=== PATIENT | female | born 1945 | race Caucasian/White ===

== ENCOUNTER 2017-01-19 18:57 | Emergency (ER) | payer MEDICARE ==
[~2017-01-19] VITALS: Ht 154.9 cm; Wt 59.0 kg
[~2017-01-19 18:57] MED LIST: ASCO-296 PO; ASPI-1114 PO; AZIT250T PO; CALC-652 PO; ESOM40CA24 PO; FISH OIL DR 1,1 EAC1 PO; GARL1CAP12 PO; LISI-126 PO; LOVA40TA70 PO; MULT-806 PO; SUCR1TAB20 PO; SUMA100T7 PO; [UNRECOGNIZED DRUG - CODE] PO
--- OUTSIDE RECORDS SUMMARY | 2017-01-19 19:02 | XMS REPORT ---
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 Role Phone Chan Iniguez Unavailable [phone] PROBLEMS Type Condition ICD9-CM Code OHG76-OG Code Onset Dates Condition Status SNOMED Code Problem Chronic migraine without aura, without mention of intractable migraine without mention of status migrainosus 346.70 Active 624706828341201 Problem Insomnia, unspecified 780.52 Active 166484447 Problem Hypertension 997.91 Active 13762086 Problem Unspecified essential hypertension 401.9 Active 62431209 Problem Reflux esophagitis 530.11 Active 249351494 Problem Gastro-esophageal reflux disease without esophagitis K21.9 Active 565074572 Problem Essential (primary) hypertension I10 Active 62228881 Problem Generalized anxiety disorder 300.02 Active 39231972 Problem Pain in joint, lower leg 719.46 Active 952833011 Problem Hyperlipidemia, unspecified E78.5 Active 93564721 Problem Unspecified genital herpes 054.10 Active 28162899 ALLERGIES Unknown Allergies SOCIAL HISTORY No smoking Hx information available PLAN OF CARE VITAL SIGNS MEDICATIONS Medication Instructions Dosage Frequency Start Date End Date Duration Status Nexium 40MG Orally Once a day take one capsule by mouth every day 24h 90 days Active RESULTS No Results PROCEDURES No Known procedures IMMUNIZATIONS No Known Immunizations
--- OUTSIDE RECORDS SUMMARY | 2017-01-19 19:03 | XMS REPORT | Continuity of Care Document ---
Author Author [facility] Organization [facility] Address Unknown Phone Unavailable Support Name Relationship Address Phone JASON CROCKETT DO Caregiver [address] [place] [address] Unavailable ORACIO VALADEZ MD Caregiver [address] [place] [address] [place] [address] Unavailable VERÓNICAAPOLINAR GUEVARANT Next Of Kin Unknown [phone] C Insurance Providers Guarantor JakFermin A Address [address] [place] [address] Email [email or web address] Payer Medicare Policy Number [id number] Subscriber's Name Fermin Mo Relationship 18 Self Effective Date 11 Advance Directives Directive Response Recorded Date/Time Advanced Directives Type None 09/19/16 1:18pm Chief Complaint and Reason for Visit Chief Complaint Cough,Fever,Flu,URI Reason for Visit Gastric reflux Bronchitis Problems Active Problems Medical Problem Onset Date Status Bronchitis Unknown Acute Gastric reflux Unknown Acute Past Problems Medical Problem Onset Date Gastritis Unknown Medications Current Home Medications Medication Dose Units Route Directions Days Qty Instructions Start Date Ascorbic Acid (Vitamin C) 500 Mg Tablet 500 Mg Oral Daily Aspirin/Sod Bicarb/Citric Acid (Sushma-[place] Original Tab Eff) 1 Each Tablet.eff 2 Tab Oral As Needed 03/22/16 Azithromycin (Zithromax) 250 Mg Tablet 1 Tab Oral Daily 4 Days 4 Tablet TAKE ONE TABLET DAILY FOR FOUR MORE DAYS; START ON Saturday09/19/16 Calcium Carbonate (Calcium) 1 Tab Tablet 1 Tab Oral Daily Echinacea 500 Mg Capsule 1,000 Mg Oral Daily 07/01/13 Esomeprazole Mag Trihydrate (Nexium) 40 Mg Capsule.dr 40 Mg Oral Daily 07/22/12 Garlic 1 Cap Capsule 1 Cap Oral Daily 07/01/13 Lisinopril 20 Mg Tablet 20 Mg Oral Daily 07/22/12 Lovastatin 40 Mg Tablet 40 Mg Oral Bedtime 07/22/12 Multivitamins (Multivitamin) 1 Tab Tablet 1 Tab Oral Daily [place]-3 Fatty Acids/Fish Oil ([place] [address] Dr 1,000 Mg Softgel) 1 Each Capsule. 1 Cap Oral Daily 03/22/16 Sucralfate (Carafate) 1 Gm Tablet 1 G Oral Twice A Day 03/22/16 Sumatriptan Succinate (Imitrex) 100 Mg Tablet 100 Mg Oral As Needed 07/01/13 Past Home Medications Medication Directions Ordered Status [place]-3/Dha/Epa/Fish Oil (Fish Oil 1,400 Mg Softgel) 1 Each Capsule., 1 Each Oral Daily 07/01/13 Discontinued Quetiapine Fumarate (Seroquel) 25 Mg Tablet, 25 Mg Oral Bedtime 07/22/12 Discontinued Social History Social History Problem Response Recorded Date/Time Onset Date Status Chewing Tobacco Status No 07/15/2013 11:56am Not Applicable Not Applicable Hx Substance Use No 09/19/2016 3:09pm Not Applicable Not Applicable Hx Alcohol Use Y 1X MO AT THE MOST 09/19/2016 3:09pm Not Applicable Not Applicable Has the pt used tobacco in the last 12 months No 04/14/2015 9:53am Not Applicable Not Applicable Tobacco Usage none 03/23/2016 10:28am Not Applicable Not Applicable Query Response Start Date Stop Date Smoking Status Never smoker Hospital Discharge Instructions No hospital discharge instructions. Plan of Care Discharge Date 09/19/16 3:24pm Disposition 01 DISCHARGED HOME, SELF-CARE Condition at Discharge Stable Instructions/Education Provided DI for Gastroesophageal Reflux Disease (GERD) DI for Acute Bronchitis Prescriptions See Medication Section Referrals JASON CROCKETT DO Order Date: 1 Week Address: [address] [place] [address] [phone] Note: Additional Instructions/Education YOUR ANTIBIOTICS WERE STARTED TODAY; YOU WONT NEED TO TAKE YOUR NEXT DOSE UNTIL TOMORROW. STEROID INJECTION GIVEN WILL TAKE THE PLACE OF ORAL STEROIDS. USE GI COCKTAIL DIRECTED AND NEEDED FOR ABDOMINAL PAIN. TAKE YOUR ZITHROMAX WITH FOOD TO PREVENT STOMACH UPSET. FOLLOW UP WITH DR CROCKETT IF NOT IMPROVING OR RETURN TO THE ER WITH WORSENING SYMPTOMS. Functional Status No functional status results. Allergies, Adverse Reactions, Alerts No known allergies. Immunizations Query Response on File Recorded Date/Time Hx Influenza Vaccination No 04/14/15 9:53am Hx Pneumococcal Vaccination No 04/14/15 9:53am Hx Influenza Vaccination No 04/14/15 9:53am Vital Signs Acute Vital Signs Vital Response Date/Time Temperature (Fahrenheit) 98.1 deg F (96.8 - 99.1) 09/19/2016 3:24pm Temperature (Calculated Celsius) 36.75823 degrees C (36.0 - 37.3) 09/19/2016 3:24pm Pulse Rate (adult) 89 bpm (60 - 100) 09/19/2016 3:24pm Respiratory Rate 16 breaths/min (10 - 20) 09/19/2016 3:24pm O2 Sat by Pulse Oximetry 97 % (90 - 100) 09/19/2016 3:24pm Blood Pressure 128/62 mm Hg 09/19/2016 3:24pm Height (Feet) 5 feet 09/19/2016 1:18pm Height (Inches) 1.00 inches 09/19/2016 1:18pm Weight (Kilograms) 61.900 kg 09/19/2016 1:18pm Body Mass Index (BMI) 25.0 09/19/2016 1:18pm Results No known relevant diagnostic tests, laboratory data and/or discharge summary. Procedures No known history of procedures. Encounters Encounter Location Arrival/Admit Date Discharge/Depart Date Attending Provider Departed Emergency Room [facility] 09/19/16 1:14pm 09/19/16 3: 24pm ORACIO VALADEZ MD Recent Diagnosis
[2017-01-19 19:27] VITALS: Ht 154.9 cm; Wt 59.0 kg
--- NOTE | 2017-01-19 20:40 | NUR ---
STATUS PT AT REGISTRATION DESK WANTING TO GO HOME STATES SHE IS NOT AN EMERGENCY AND CAN COME BACK TOMORROW ASKING WHAT TIME SHE COULD COME THAT WILL BE CONVENIENT EXPLAINED TO PT THAT IS UNKNOWN BECAUSE THIS IS THE EMERGENCY ROOM AND WE DO NOT TAKE SCHEDULED TIMES. ALSO EXPLAINED THAT TOMORROW MAY BE JUST BUSY AND SHE WOULD BE WAITING THEN TOO. PT STATES SHE WOULD JUST RATHER GO HOME. DID SAY SHE WAS TO TIRED TO GO TO THE STORE AND WANTED TO KNOW IF SHE CAN HAVE SOME SALTINE CRACKERS. PT WAS GIVEN SOME CRACKERS AND SAYS SHE WILL TRY THAT AND COME BACK TOMORROW IF SHE NEEDS TO
[2017-01-19 20:42] VITALS: BP 177/79; PULSE 78; RESP 18; TEMP 98.6; O2SAT 98
--- NOTE | 2017-01-19 20:42 | NUR ---
LWBS PT SIGNED LWBS FORM
[2017-01-20] MEDS ORDERED: ONDA4TAB10 PO (10:28)
== END 2017-01-19 20:42 | disposition left against medical advice (07) ==
LOC: ED 18:57
DX: Z53.21 Procedure and treatment not carried out due to patient leaving prior to being seen by health care provider (principal)

== ENCOUNTER 2017-01-20 08:37 | Emergency (ER) | payer MEDICARE ==
[~2017-01-20] VITALS: Ht 154.9 cm; Wt 59.2 kg
[2017-01-20 08:40] VITALS: Ht 154.9 cm; Wt 59.2 kg
--- OUTSIDE RECORDS SUMMARY | 2017-01-20 08:41 | XMS REPORT | Continuity of Care Document ---
Author Author [facility] Organization [facility] Address Unknown Phone Unavailable Support Name Relationship Address Phone JANUARY, VANESSA Dean DO Caregiver [address] [place] [address] Unavailable JASON CROCKETT DO Caregiver [address] [place] [address] Unavailable APOLINAR SANCHESNT Next Of Kin Unknown [phone] C Insurance Providers Guarantor ChelyFermin A Address [address] [place] [address] Email [email or web address] Payer Medicare Policy Number [id number] Subscriber's Name Fermin Benedict Relationship 18 Self Effective Date 11 Chief Complaint and Reason for Visit Chief Complaint Nausea,Vomiting,Diarrhea Reason for Visit Patient left without being seen Problems Active Problems Medical Problem Onset Date Status Bronchitis Unknown Acute Gastric reflux Unknown Acute Past Problems Medical Problem Onset Date Gastritis Unknown Patient left without being seen Unknown Medications Current Home Medications Medication Dose Units Route Directions Days Qty Instructions Start Date Ascorbic Acid (Vitamin C) 500 Mg Tablet 500 Mg Oral Daily Aspirin/Sod Bicarb/Citric Acid (Sushma-[place] Original Tab Eff) 1 Each Tablet.eff 2 [...] 1 Tab Tablet 1 Tab Oral Daily [place]-3 Fatty Acids/Fish Oil (Fish Oil Dr 1,000 Mg Softgel) 1 Each Capsule.dr 1 Cap Oral Daily 03/22/16 Sucralfate (Carafate) 1 Gm Tablet 1 G Oral Twice A Day 03/22/16 Sumatriptan Succinate (Imitrex) 100 Mg Tablet 100 Mg Oral As Needed 07/01/13 Past Home Medications Medication Directions Ordered Status [place]-3/Dha/Epa/Fish Oil (Fish Oil 1,400 Mg Softgel) 1 Each Capsule.dr, 1 Each Oral Daily 07/01/13 Discontinued Quetiapine [...] none 03/23/2016 10:28am Not Applicable Not Applicable Hospital Discharge Instructions No hospital discharge instructions. Plan of Care Discharge Date 01/19/17 8:42pm Disposition 07 LEFT W/O BEING SEEN Condition at Discharge Stable Prescriptions See Medication Section Referrals JASON CROCKETT DO Address: [address] [place] [phone] Functional Status No functional status results. Allergies, Adverse Reactions, Alerts No known allergies. Immunizations Query Response on File Recorded Date/Time Hx Influenza Vaccination No 04/14/15 9:53am Hx Pneumococcal Vaccination No 04/14/15 9:53am Hx Influenza Vaccination No 04/14/15 9:53am Vital Signs Acute Vital Signs Vital Response Date/Time Temperature (Fahrenheit) 98.6 deg F (96.8 - 99.1) 01/19/2017 8:42pm Temperature (Calculated Celsius) 37.67677 degrees C (36.0 - 37.3) 01/19/2017 8:42pm Pulse Rate (adult) 78 bpm (60 - 100) 01/19/2017 8:42pm Respiratory Rate 18 breaths/min (10 - 20) 01/19/2017 8:42pm O2 Sat by Pulse Oximetry 98 % (90 - 100) 01/19/2017 8:42pm Blood Pressure 177/79 mm Hg 01/19/2017 8:42pm Height (Feet) 5 feet 01/19/2017 7:27pm Height (Inches) 1.00 inches 01/19/2017 7:27pm Weight (Kilograms) 59.000 kg 01/19/2017 7:27pm Body Mass Index (BMI) 24.0 01/19/2017 7:27pm Results No known relevant diagnostic tests, laboratory data and/or discharge summary. Procedures No known history of procedures. Encounters Encounter Location Arrival/Admit Date Discharge/Depart Date Attending Provider Departed Emergency Room [facility] 01/19/17 6:57pm 01/19/17 8: 42pm VANESSA RIOJAS DO Recent Diagnosis
[2017-01-20] MEDS ORDERED: G.I. COCKTAIL 30ml PO ONE (09:00)
[2017-01-20] MEDS ORDERED: ONDANSETRON ODT 4 MG TAB PO ONE (09:00)
[2017-01-20] MEDS ORDERED: KETOROLAC 30mg/ml INJECTION IV ONE (09:30)
--- NOTE | 2017-01-20 09:30 | NUR ---
STATUS PT. STATES THE GI COCKTAIL HELPED HER ABD. DISCOMFORT BUT MADE HER SALIVATE AND FEEL LIKE SHE COULD VOMIT.
--- NOTE | 2017-01-20 09:34 | NUR ---
DR YANG MAY IN TO SEE PT.
[2017-01-20 10:05] LABS: BASOPHILS % (AUTO) 0.3 % (0-2); EOSINOPHILS % (AUTO) 0.4 % (0-4); HCT - HEMATOCRIT 41.3 % (36-46); HGB - HEMOGLOBIN 13.8 GM/DL (12-16); IMMATURE GRANULOCYTE # (AUTO) 0.01 T/MM3 (0.00-0.03); IMMATURE GRANULOCYTE % (AUTO) 0.1 % (0.0-0.5); LYMPHOCYTES # (AUTO) 1.8 T/MM3 (1-4.8); LYMPHOCYTES % (AUTO) 25.4 % (23-45); MEAN CORPUSCULAR HGB 31.9 UUG (26-34); MEAN CORPUSCULAR HGB CONC(MCHC 33.4 GM/DL (31-37); MEAN CORPUSCULAR VOLUME 95.6 UM3 (80-100); MEAN PLATELET VOLUME 9.3 UM3 (9.4-12.4); MONOCYTES # (AUTO) 0.4 T/MM3 (0-0.8); MONOCYTES % (AUTO) 5.6 % (0-9.0); NEUTROPHILS #(AUTO)-ABSOLUTE 4.7 T/MM3 (1.8-7.7); NEUTROPHILS % (AUTO) 68.2 % (33-66); RED BLOOD COUNT 4.32 M/MM3 (4.00-5.20); WBC - WHITE BLOOD COUNT 6.9 T/MM3 (4.5-11.0)
[2017-01-20 10:14] LABS: ALBUMIN 4.5 G/DL (3.5-5.0); ALBUMIN/GLOBULIN RATIO 1.7 RATIO (1.1-2.2); ALKALINE PHOSPHATASE 74 U/L (38-126); ALT (SGPT) 49 U/L (9-52); ANION GAP 12 MEQ/L (5-15); AST (SGOT) 42 U/L (14-36); BUN/CREATININE RATIO 22 RATIO (6-26); CALCIUM 9.7 MG/DL (8.4-10.2); CHLORIDE 103 MEQ/L (98-107); CO2 - CARBON DIOXIDE 28 MEQ/L (22-30); CREATININE 0.6 MG/DL (0.7-1.2); GLOMERULAR FILTRATION RATE 99; GLUCOSE 115 MG/DL (65-110); LIPASE 117 U/L (23-300); POTASSIUM 3.9 MEQ/L (3.6-5); SODIUM 143 MEQ/L (134-144); TOTAL PROTEIN 7.1 G/DL (6.3-8.2)
--- NOTE | 2017-01-20 10:19 | ERPDOC ---
Departure Disposition Decision Date: January 20, 2017 Disposition Decision Time: 10:24 Disposition: 01 DISCHARGED HOME, SELF-CARE Impression Impression Impression: Primary Impression: Gastritis and duodenitis Severity: Mild Condition: Improved Seen By: Physician only Referrals: JASON CROCKETT DO (Family) 1 Week Patient Instructions: Gastritis (ED) Problems/Meds/Labs Reviewed?: Yes Medications reviewed and manag: Yes Additional Instructions: You have stomach upset, caused by your vomiting. Continue to take your Nexium as prescribed. Take the sucralfate as previously prescribed. Consider taking pepto-bismol for your symptoms in addition to the sucralfate. Take zofran as needed for nausea. Follow up with your doctor to see if a repeat scope is warranted at this time. Follow up care ordered?: Yes Mental Status: Alert, Oriented HPI - Abdominal Pain General Chief Complaint: Nausea,Vomiting,Diarrhea Stated Complaint: N/V Time Seen by Provider: 08:51 Source: patient History/Exam Limitations: no limitations HPI - Abdominal Pain Initial Comments 71yo woman presents to the ER today for gastritis. Pt had N/V for 12hrs 4 days ago. Since then, has had intermittent nausea and epigastric pain that improves with water, sprite, and crackers. Pt tried to eat oatmeal this AM, but that made her pain worse. Pt has h/o GERD - takes nexium daily. Has not tried any other meds for her pain; wants her epigastric pain to go away. Occurred At: home Onset: Rapid, Constant Duration: 1 week Pain Scale: Now & Worst: 4/10 Quality: aching, burning Location: epigastric Radiation: no radiation Activities at Onset: none Modifying Factors: IMPROVES WITH: eating, rest, WORSE WITH: movement, palpation Associated Symptoms: heartburn, nausea/vomiting Hx of Similar Symptoms: Yes Allergies: Coded Allergies: No Known Allergies (Unverified , 01/22/17) Past History Past Medical History Metabolic: hypercholesterolemia, hypertension GI: GERD Psychological: anxiety, bipolar Surgical History General: EGD, colonoscopy, gallbladder, other Family History Family PMH: FOUND: other Vaccines Hx Influenza Vaccination: No Hx Pneumococcal Vaccination: No Social History Substance Use Type: does not use Alcohol Intake: none Review of Systems GI Upper Abdomen: heartburn/indigestion, nausea, pain, vomiting, DENIES: dysphagia , food intolerances, hematemesis Lower Abdomen: DENIES: blood in stool, helder-colored stools, constipation, diarrhea, melena, pain, painful BM All other Systems All Other Systems: Reviewed and Negative Physical Exam General General Nourishment: well nourished, well developed, appears stated age, no acute distress, adult, thin General Body Habitus: well groomed Vitals and Pain First Documented Vital Signs Date Time Temp Pulse Resp B/P Pulse Ox O2 Delivery O2 Flow Rate FiO2 01/20/17 08:40 98.4 81 18 161/72 97 Room Air Weight: Kilograms: 59.200 Height (feet): 5 Height (inches): 1.00 Triage Pain Scale: RN VS reviewed by Provider: Yes Normal Exams: Head: Normocephalic w/o trauma Eyes: Pupils are PERRLA w/ EOMI, No scleral icterus, irritation ENMT: No facial trauma, nasal exudates, pharyngeal erythema Neck: Full range of motion, without adenopathy, JVD Lymphatic: No lymphadenopathy Musculoskeletal: No tenderness, or deformity noted Integumentary: No rashes, hives, or bruising noted Neurologic: Patient is alert, and oriented Psychiatric: Patient exhibits, appropriate attention Respiratory (brief) Respiratory: FOUND: clear all munoz, equal bilaterally, symmetrical, NOT FOUND : rales, wheezes Cardiovascular (brief) Cardiac: FOUND: regular rate, regular rhythm, NOT FOUND: click, gallop, murmur , pedal edema, peripheral edema, rub Capillary Refill: <2 sec Pulses: all distal extremities, equal, strong Abdomen (brief) Abdominal Brief: FOUND: bowel normo active x4, soft, tender (TTP in epigastrum. Neg Owen's), NOT FOUND: distended, hepatosplenomegaly, pulsatile mass Differential Diagnoses Considering: Biliary Colic, Bowel Obstruction, Dehydration, Food Poisoning, Gastroenteritis, Pancreatitis, Rotavirus, Toxin Progress Results/Orders Orders Procedure Category Date Status Time G.I. Cocktail PHA 01/20/17 Complete (/Maalox/Lidocaine 09:00 Ondansetron Odt PHA 01/20/17 Complete (Zofran Odt) 09:00 Cbc W/Auto LAB 01/20/17 Complete Diff-Reflex Manual Cmp - Comprehensive LAB 01/20/17 Complete Metabolic Lipase LAB 01/20/17 Complete Kub W/Upright RAD 01/20/17 Resulted 09:37 Lab Results Laboratory Tests Test 01/20/17 09:54 White Blood Count 6.9T/MM3 Red Blood Count 4.32M/MM3 Hemoglobin 13.8GM/DL Hematocrit 41.3% Mean Corpuscular Volume 95.6UM3 Mean Corpuscular Hemoglobin 31.9UUG Mean Corpuscular Hemoglobin Concent 33.4GM/DL RDW Standard Deviation 45.9FL Platelet Count 283T/MM3 Mean Platelet Volume 9.3UM3 Immature Granulocyte % (Auto) 0.1% Neutrophils (%) (Auto) 68.2% Lymphocytes (%) (Auto) 25.4% Monocytes (%) (Auto) 5.6% Eosinophils (%) (Auto) 0.4% Basophils (%) (Auto) 0.3% Absolute Immature Granulocyte (auto 0.01T/MM3 Absolute Neutrophils (auto) 4.7T/MM3 Absolute Lymphocytes (auto) 1.8T/MM3 Absolute Monocytes (auto) 0.4T/MM3 Absolute Eosinophils (auto) 0.0T/MM3 Absolute Basophils (auto) 0.0T/MM3 Turbidity < 20 Sodium Level 143MEQ/L Potassium Level 3.9MEQ/L Chloride Level 103MEQ/L Carbon Dioxide Level 28MEQ/L Anion Gap 12MEQ/L Blood Urea Nitrogen 13.0MG/DL Creatinine 0.6MG/DL Glomerular Filtration Rate Calc 99 BUN/Creatinine Ratio 22RATIO Glucose Level 115MG/DL Calculated Osmolality 276MOSM/KG Calcium Level 9.7MG/DL Total Bilirubin 0.50MG/DL Icterus Index < 2 Aspartate Amino Transf (AST/SGOT) 42U/L Alanine Aminotransferase (ALT/SGPT) 49U/L Alkaline Phosphatase 74U/L Total Protein 7.1G/DL Albumin 4.5G/DL Globulin 2.6G/DL Albumin/Globulin Ratio 1.7RATIO Lipase 117U/L Chemistry Specimen Hemolysis 42 Medications Current ED Medications Pharmacy Profile Note (/Maalox/ Lidocaine Soln) 30 ml O ONCE PO Last administered on 01/20/17 08:56; Start 01/20/17 at 09:00; Stop 01/20/17 at 09:01; Status DC Ondansetron HCl (Zofran Odt) 4 mg O ONCE PO Last administered on 5/7/17at 08: 57; Start 01/20/17 at 09:00; Stop 01/20/17 at 09:01; Status DC Ketorolac Tromethamine (Toradol) 30 mg O ONCE IV ; Start 01/20/17 at 09:30; Stop 01/20/17 at 09:31; Status Cancel Progress Progress 71yo woman with s/s c/w acute gastritis following a bout of GE. Gave recommendations for treatment of sx while awaiting improvement in sx. Pt will need to f/u with PCM for referral for repeat UGI (last was 2yrs ago). Pt voiced understanding of dx, prognosis, tx, and need for f/u. Pt voiced understanding. Xray Xray : Xray: KUB Upright Interpretation: Abnormal (RUQ surgical clips, left SI joint abn - old), Interpreted by VANESSA Sewell DO January 20, 2017 10:19 VANESSA RIOJAS DO January 20, 2017 10:19
[2017-01-20] MEDS ORDERED: ONDA4TAB10 PO (10:28)
--- NOTE | 2017-01-20 10:35 | NUR ---
DISMISSAL NOTE DISMISSAL INSTRUCTIONS GIVEN TO PT. AND NO FURTHER QUESTIONS. RX. FOR ZOFRAN SENT HOME WITH PT. PT. LEFT ED AMBULATORY.
[2017-01-20 10:57] VITALS: BP 135/65; PULSE 68; RESP 16; TEMP 98.4; O2SAT 99
--- NOTE | 2017-01-20 17:44 | DI ---
Indication: ITS.REASON: Epigastric pain PROCEDURE: KUB W/UPRIGHT: Encounter: Initial Comparison: None Findings: The visualized lung bases are clear. There is no free air on the upright view. The bowel gas pattern is nonobstructive and nonspecific. Gas is seen in nondilated small and large bowel to the level of the rectum. Minimal stool is seen throughout the colon. Cholecystectomy clips. Metallic foreign bodies projecting over the abdomen which were external to the patient. Impression: Nonobstructive nonspecific bowel gas pattern. .
== END 2017-01-20 10:35 | disposition home or self-care (01) ==
LOC: ED 08:37
DX: K29.70 Gastritis, unspecified, without bleeding (principal); K29.80 Duodenitis without bleeding
CPT/HCPCS: 36415; 74020; 80053; 83690; 85025; 99283; A9270; J7999

== ENCOUNTER 2017-01-22 11:56 | Outpatient (CLI) | payer MEDICARE ==
[~2017-01-22] VITALS: Ht 154.9 cm; Wt 59.0 kg
[~2017-01-22 11:56] MED LIST changes: -AZIT250T PO; +ONDA4TAB10 PO
[2017-01-22 12:29] LABS: HCT - HEMATOCRIT 40.3 % (36-46); HGB - HEMOGLOBIN 13.8 GM/DL (12-16); MEAN CORPUSCULAR HGB 32.2 UUG (26-34); MEAN CORPUSCULAR HGB CONC(MCHC 34.2 GM/DL (31-37); MEAN CORPUSCULAR VOLUME 93.9 UM3 (80-100); MEAN PLATELET VOLUME 8.7 UM3 (9.4-12.4); RED BLOOD COUNT 4.29 M/MM3 (4.00-5.20); WBC - WHITE BLOOD COUNT 6.8 T/MM3 (4.5-11.0)
[2017-01-22] MEDS: NORMAL SALINE 1,000 ML IV SCH ×2 (12:29→13:36)
[2017-01-22 12:37] VITALS: BP 118/64; PULSE 71; RESP 16; TEMP 98.3; O2SAT 100
[2017-01-22 12:44] LABS: ALBUMIN 4.4 G/DL (3.5-5.0); ALBUMIN/GLOBULIN RATIO 1.8 RATIO (1.1-2.2); ALKALINE PHOSPHATASE 72 U/L (38-126); ALT (SGPT) 43 U/L (9-52); ANION GAP 13 MEQ/L (5-15); AST (SGOT) 37 U/L (14-36); BUN/CREATININE RATIO 14 RATIO (6-26); C-REACTIVE PROTEIN < 5.0 MG/L (0-9); CALCIUM 9.8 MG/DL (8.4-10.2); CHLORIDE 107 MEQ/L (98-107); CO2 - CARBON DIOXIDE 24 MEQ/L (22-30); CREATININE 0.7 MG/DL (0.7-1.2); GLOMERULAR FILTRATION RATE 83; GLUCOSE 100 MG/DL (65-110); POTASSIUM 3.8 MEQ/L (3.6-5); SODIUM 144 MEQ/L (134-144); TOTAL PROTEIN 6.8 G/DL (6.3-8.2)
[2017-01-22 12:57] VITALS: Ht 154.9 cm; Wt 59.0 kg
[2017-01-22 13:03] LABS: BAND NEUTROPHILS # 0.1 T/MM3; EOSINOPHILS # (MANUAL) 0.1 T/MM3 (0-0.5); LYMPHOCYTES # (MANUAL) 2.6 T/MM3 (1-4.8); MONOCYTES # (MANUAL) 0.2 T/MM3 (0-0.8); NEUTROPHILS #(MANUAL)-ABSOLUTE 3.4 T/MM3 (1.8-7.7); REACTIVE LYMPHOCYTES # 0.4 T/MM3 (0-0); TOTAL CELLS COUNTED 100 %
[2017-01-22] MEDS ORDERED: QUET100T69 PO (13:26)
[2017-01-22] MEDS ORDERED: QUET25TA73 PO (13:26)
[2017-01-22 14:43] LABS: BLOOD, URINE TRACE-INTACT (NEGATIVE); COLOR,URINE YELLOW (YELLOW); LEUKOCYTE ESTERASE ,URINE NEGATIVE (NEGATIVE); NITRITE,URINE NEGATIVE (NEGATIVE); UROBILINOGEN,URINE 0.2 EU/DL (NORMAL)
[2017-01-22 15:01] LABS: BACTERIA,URINE NONE SEEN (NEGATIVE); RBC,URINE NONE SEEN /HPF (0-3); SQUAMOUS EPITHELIAL CELL,UR 0-5; WBC,URINE 0-1 /HPF (0-5)
== END 2017-01-22 15:03 ==
LOC: INF.THER 11:56
PROVIDERS: ATTEND Internal Medicine
DX: M54.5 Low back pain (principal); R53.83 Other fatigue; A09 Infectious gastroenteritis and colitis, unspecified; E86.0 Dehydration; R11.0 Nausea; K21.9 Gastro-esophageal reflux disease without esophagitis
CPT/HCPCS: 36592; 80053; 81001; 84484; 85007; 85027; 86140; 96360; 96361; J7030

== ENCOUNTER → 2017-01-28 | Outpatient (CLI) | payer MEDICARE ==
[~2017-01-28] VITALS: Ht 154.9 cm; Wt 60.0 kg
[~2017-01-28] MED LIST changes: +QUET100T69 PO; +QUET25TA73 PO
[2017-01-28] MEDS: NORMAL SALINE 1,000 ML IV SCH ×2 (12:53→14:00)
[2017-01-28 12:55] VITALS: BP 136/67; PULSE 58; RESP 16; TEMP 98.3; O2SAT 99
[2017-01-28 12:57] VITALS: Ht 154.9 cm; Wt 60.0 kg
== END ==
LOC: INF.THER 12:26
PROVIDERS: ATTEND Registered Nurse
DX: E86.0 Dehydration (principal); R53.83 Other fatigue
CPT/HCPCS: 96360; 96361; J7030